=== PATIENT | male | born 1950 | race Two or more races ===

== ENCOUNTER 2021-02-09 09:11 | Outpatient (CLI) | payer OTHER | END 2021-02-09 09:21 | disposition home or self-care (01) | LOC: SONOGRAMA 09:11 | PROVIDERS: ATTEND Internal Medicine Gastroenterology | DX: K80.80 Other cholelithiasis without obstruction (principal); K57.30 Diverticulosis of large intestine without perforation or abscess without bleeding; Z85.038 Personal history of other malignant neoplasm of large intestine; K29.70 Gastritis, unspecified, without bleeding; K80.20 Calculus of gallbladder without cholecystitis without obstruction ==

== ENCOUNTER 2021-02-17 07:38 | Outpatient (CLI) | payer OTHER | END 2021-02-17 07:44 | disposition home or self-care (01) | LOC: RX STUDY 07:38 | PROVIDERS: ATTEND Internal Medicine Gastroenterology | DX: K44.9 Diaphragmatic hernia without obstruction or gangrene (principal); K57.30 Diverticulosis of large intestine without perforation or abscess without bleeding; Z85.038 Personal history of other malignant neoplasm of large intestine; K76.0 Fatty (change of) liver, not elsewhere classified; K29.70 Gastritis, unspecified, without bleeding; K80.20 Calculus of gallbladder without cholecystitis without obstruction ==

== ENCOUNTER 2021-02-27 07:56 | Outpatient (CLI) | payer OTHER | END 2021-02-27 07:58 | disposition home or self-care (01) | LOC: TOM 07:56 | PROVIDERS: ATTEND Internal Medicine Gastroenterology | DX: K57.30 Diverticulosis of large intestine without perforation or abscess without bleeding (principal); Z85.038 Personal history of other malignant neoplasm of large intestine; K29.70 Gastritis, unspecified, without bleeding; K76.0 Fatty (change of) liver, not elsewhere classified; K80.20 Calculus of gallbladder without cholecystitis without obstruction; K44.9 Diaphragmatic hernia without obstruction or gangrene; K80.80 Other cholelithiasis without obstruction ==